=== PATIENT | female | born 1995 | race Caucasian/White ===

== ENCOUNTER 2021-10-18 19:27 | Emergency (ER) | payer BC ==
[2021-10-18] MEDS ORDERED: Fentanyl 100 MCG/2 ML VIAL ONE (19:57)
[2021-10-18] MEDS ORDERED: Bacitracin 1 PK ONE (20:44)
== END 2021-10-18 21:03 | disposition home or self-care (01) ==
LOC: CSHERS 19:27
DX: S90.32XA Contusion of left foot, initial encounter (principal); W55.29XA Other contact with cow, initial encounter
CPT/HCPCS: 96372; J3010